=== PATIENT | female | born 1980 | race African-American/Black ===

== ENCOUNTER 2020-06-01 18:49 | Emergency (ER) | payer OTHER ==
[2020-06-01 18:55] VITALS: BMI 30.4
[2020-06-01] MEDS ORDERED: SODIUM CHLORIDE 0.9% 500 ML INFUS.BAG IV ONE (19:25)
[2020-06-01] MEDS ORDERED: ONDANSETRON 4 MG/2 ML VIAL IVPUSH ONE (19:26)
[2020-06-01] MEDS ORDERED: ONDANSETRON 4 MG/2 ML VIAL ONE (19:53)
[2020-06-01 20:01] LABS: PH,URINE 6.5 (5.0-8.0); URINE APPEARANCE CLEAR; URINE BILIRUBIN NEGATIVE (NEGATIVE); URINE COLOR YELLOW; URINE GLUCOSE (UA) NEGATIVE (NEGATIVE); URINE KETONE NEGATIVE (NEGATIVE); URINE LEUK ESTERASE NEGATIVE (NEGATIVE); URINE NITRITE NEGATIVE (NEGATIVE); URINE PROTEIN NEGATIVE (NEGATIVE); URINE UROBILINOGEN 0.2 mg/dL (0.2-1.0)
[2020-06-01 20:02] LABS: BASO % 0.8 % (0-2.0); EOS % 0.6 % (0-4.5); HEMATOCRIT 27.8 % (32.4-45.2); HEMOGLOBIN 8.7 GM/dL (10.7-15.3); LYMPH % 30.7 % (8-40); MCHC 31.4 g/dl (32.0-36.0); MEAN CELL VOLUME 59.3 fl (80-96); MEAN PLT VOLUME 10.1 fl (7.5-11.1); MONO % 7.1 % (3.8-10.2); NEUT % 60.8 % (42.8-82.8); PLATELET COUNT 191 K/MM3 (134-434); RBC 4.68 M/mm3 (3.60-5.2); RDW 23.7 % (11.6-15.6); WHITE BLOOD COUNT 5.5 K/mm3 (4.0-10.0)
[2020-06-01 20:04] LABS: HCG,QUALITATIVE URINE Negative
[2020-06-01 20:13] LABS: MCH 18.7 pg (25.7-33.7)
[2020-06-01 20:19] LABS: POTASSIUM 3.9 mmol/L (3.5-5.1)
[2020-06-01 20:20] LABS: ALBUMIN 4.1 g/dl (3.4-5.0); CALCIUM 8.6 mg/dL (8.5-10.1)
[2020-06-01 20:22] LABS: BLOOD UREA NITROGEN 6.5 mg/dL (7-18)
[2020-06-01 20:25] LABS: CREATININE 0.9 mg/dL (0.55-1.3)
[2020-06-01 20:26] LABS: BILIRUBIN,TOTAL 0.4 mg/dL (0.2-1); TOT PROT 7.8 g/dl (6.4-8.2)
[2020-06-01] MEDS ORDERED: ACETAMINOPHEN 500 MG TABLET (FP) PO ONE (20:58)
[2020-06-01 21:01] LABS: ANISOCYTOSIS 3+; MACROCYTOSIS 0; OVALOCYTE 1+; PLATELET ESTIMATE NORMAL; TARGET CELLS 2+; TEAR DROP CELLS 1+
[2020-06-01] MEDS ORDERED: ACETAMINOPHEN 500 MG TABLET (FP) ONE (21:08)
[2020-06-01] MEDS ORDERED: morphine CARPU-JECT 4 MG/1 ML DISP.SYRIN IVPUSH ONE (22:07)
[2020-06-01] MEDS ORDERED: morphine SULFATE 4 MG/ML VIAL ONE (22:12)
[2020-06-01] MEDS ORDERED: KETOROLAC TROMETHAMINE 30 MG/1 ML VIAL IVPUSH ONE (23:18)
[2020-06-01] MEDS ORDERED: KETOROLAC TROMETHAMINE 30 MG/1 ML VIAL ONE (23:23)
[2020-06-02 00:38] VITALS: BP 129/87; PULSE 89; TEMP 98.3
== END 2020-06-02 00:38 | disposition home or self-care (01) ==
LOC: JER 18:49
PROC: 3E0333Z Introduction of Anti-inflammatory into Peripheral Vein, Percutaneous Approach (ICD-10-PCS; principal; 2020-06-01)
PROC: 3E033NZ Introduction of Analgesics, Hypnotics, Sedatives into Peripheral Vein, Percutaneous Approach (ICD-10-PCS; 2020-06-01)
PROC: 3E033GC Introduction of Other Therapeutic Substance into Peripheral Vein, Percutaneous Approach (ICD-10-PCS; 2020-06-01)
DX: R10.32 Left lower quadrant pain (principal)
CPT/HCPCS: 36415; 74176-TC; 76830-TC; 80053; 81003; 84703; 85025; 87086; 99285-25

== ENCOUNTER 2021-04-24 23:55 | Emergency (ER) | payer OTHER ==
[2021-04-25 00:10] VITALS: BP 122/60; PULSE 100; TEMP 99.9; BMI 30.4
[2021-04-25] MEDS ORDERED: LIDOCAINE HCL 1%, 10 MG/ML (50 mL VIAL) SQ ONE (01:32)
[2021-04-25] MEDS ORDERED: ACETAMINOPHEN 500 MG TABLET (FP) PO ONE (01:33)
[2021-04-25] MEDS ORDERED: ACETAMINOPHEN 325 MG TABLET (FP) ONE (01:59)
[2021-04-25] MEDS ORDERED: LIDOCAINE HCL 1%, 10 MG/ML (20ML VIAL) ONE (02:01)
== END 2021-04-25 03:43 | disposition home or self-care (01) ==
LOC: JER 23:55
PROC: 0H98XZZ Drainage of Buttock Skin, External Approach (ICD-10-PCS; principal; 2021-04-24)
DX: L05.01 Pilonidal cyst with abscess (principal)
CPT/HCPCS: 87070; 87076; 87205; 99283-25

== ENCOUNTER 2021-04-26 12:19 | Emergency (ER) | payer OTHER ==
[2021-04-26 12:34] VITALS: BP 136/82; PULSE 103; TEMP 98.9; BMI 31.3
[2021-04-26] MEDS ORDERED: KETOROLAC TROMETHAMINE 30 MG/1 ML VIAL IM ONE (13:16)
[2021-04-26] MEDS ORDERED: KETOROLAC TROMETHAMINE 30 MG/1 ML VIAL ONE (13:17)
== END 2021-04-26 13:56 | disposition home or self-care (01) ==
LOC: JERFT 12:19
PROC: 3E0233Z Introduction of Anti-inflammatory into Muscle, Percutaneous Approach (ICD-10-PCS; principal; 2021-04-26)
DX: Z48.00 Encounter for change or removal of nonsurgical wound dressing (principal)
CPT/HCPCS: 99284-25

== ENCOUNTER 2021-07-28 10:25 | Observation (INO) | payer OTHER ==
[2021-07-28 10:34] VITALS: BMI 31.3
[2021-07-28 12:00] LABS: HEMATOCRIT 23.2 % (32.4-45.2); MCHC 28.6 g/dl (32.0-36.0); MEAN CELL VOLUME 50.4 fl (80-96); PLATELET COUNT 289 10^3/uL (134-434); RDW 21.1 % (11.6-15.6); WHITE BLOOD COUNT 4.5 K/mm3 (4.0-10.0)
[2021-07-28 12:02] LABS: MCH 14.4 pg (25.7-33.7)
[2021-07-28 12:06] LABS: HEMOGLOBIN 6.6 GM/dL (10.7-15.3)
[2021-07-28 12:23] LABS: BLOOD UREA NITROGEN 11.8 mg/dL (7-18); CALCIUM 8.9 mg/dL (8.5-10.1)
[2021-07-28 12:27] LABS: ANISOCYTOSIS 3+; CREATININE 0.9 mg/dL (0.55-1.3); MACROCYTOSIS 0; TARGET CELLS 1+
[2021-07-28 12:28] LABS: BILIRUBIN,TOTAL 0.7 mg/dL (0.2-1); TOT PROT 7.8 g/dl (6.4-8.2)
[2021-07-28] MEDS ORDERED: ACETAMINOPHEN 325 MG TABLET (FP) PO ONE (14:36)
[2021-07-28] MEDS ORDERED: ACETAMINOPHEN 325 MG TABLET (FP) ONE (14:45)
[2021-07-29] MEDS ORDERED: FERROUS SO4 325 MG TABLET (FP) PO SCH (10:00)
[2021-07-29 12:27] LABS: HEMATOCRIT 26.7 % (32.4-45.2); HEMOGLOBIN 7.7 GM/dL (10.7-15.3); MEAN PLT VOLUME 8.6 fl (7.5-11.1); PLATELET COUNT 291 10^3/uL (134-434); RBC 5.03 M/mm3 (3.60-5.2); RDW 21.2 % (11.6-15.6); WHITE BLOOD COUNT 6.6 K/mm3 (4.0-10.0)
[2021-07-29 12:49] LABS: CALCIUM 9.4 mg/dL (8.5-10.1)
[2021-07-29 12:50] LABS: ALBUMIN 4.1 g/dl (3.4-5.0); MAGNESIUM 2.3 mg/dL (1.8-2.4)
[2021-07-29 12:53] LABS: CREATININE 0.8 mg/dL (0.55-1.3)
[2021-07-29 12:54] LABS: BILIRUBIN,TOTAL 1.1 mg/dL (0.2-1); TOT PROT 7.8 g/dl (6.4-8.2)
[2021-07-29 12:56] LABS: MCH 15.4 pg (25.7-33.7)
[2021-07-29 13:15] LABS: ANISOCYTOSIS 3+; MACROCYTOSIS 0
[2021-07-29 14:12] VITALS: PULSE 79
[2021-07-29 18:58] VITALS: BP 106/73; TEMP 98
== END 2021-07-29 21:00 | disposition home or self-care (01) ==
LOC: JER 10:25 → JERBED 12:07 → J6S 20:08
PROVIDERS: ADMIT Internal Medicine; ATTEND Nurse Practitioner Family
PROC: 30233N1 Transfusion of Nonautologous Red Blood Cells into Peripheral Vein, Percutaneous Approach (ICD-10-PCS; principal; 2021-07-28)
DX: D62 Acute posthemorrhagic anemia (principal); D57.3 Sickle-cell trait; J45.909 Unspecified asthma, uncomplicated
CPT/HCPCS: 36415; 36430; 80053; 83735; 85025; 86850; 86900; 86901; 86922; 99285-25; C9803-CS; G0378; P9058; U0003; U0005

== ENCOUNTER 2021-07-31 01:31 | Emergency (ER) | payer OTHER ==
[2021-07-31 01:58] VITALS: TEMP 98.5; BMI 31.3
[2021-07-31] MEDS ORDERED: SODIUM CHLORIDE 0.9% 500 ML INFUS.BAG IV ONE (04:25)
[2021-07-31] MEDS ORDERED: KETOROLAC TROMETHAMINE 15 MG/ML VIAL IVPUSH ONE ×2 (04:25→07:47)
[2021-07-31] MEDS ORDERED: KETOROLAC TROMETHAMINE 15 MG/ML VIAL ONE ×2 (04:44→08:10)
[2021-07-31 04:59] LABS: HEMATOCRIT 26.6 % (32.4-45.2); HEMOGLOBIN 8.2 GM/dL (10.7-15.3); MCHC 30.6 g/dl (32.0-36.0); MEAN CELL VOLUME 55.9 fl (80-96); MEAN PLT VOLUME 8.6 fl (7.5-11.1); PLATELET COUNT 236 10^3/uL (134-434); RBC 4.76 M/mm3 (3.60-5.2); RDW 21.3 % (11.6-15.6); WHITE BLOOD COUNT 7.5 K/mm3 (4.0-10.0)
[2021-07-31 05:00] LABS: MCH 17.1 pg (25.7-33.7)
[2021-07-31 05:06] LABS: CALCIUM 8.4 mg/dL (8.5-10.1)
[2021-07-31 05:07] LABS: ALBUMIN 3.8 g/dl (3.4-5.0); BLOOD UREA NITROGEN 9.5 mg/dL (7-18)
[2021-07-31 05:10] LABS: CREATININE 0.8 mg/dL (0.55-1.3)
[2021-07-31 05:11] LABS: TOT PROT 7.7 g/dl (6.4-8.2)
[2021-07-31 05:12] LABS: BILIRUBIN,TOTAL 0.8 mg/dL (0.2-1)
[2021-07-31] MEDS ORDERED: ONDANSETRON 4 MG/2 ML VIAL IVPUSH ONE (05:38)
[2021-07-31] MEDS ORDERED: ACETAMINOPHEN 1000 MG/100 ML BAG IVPB ONE (05:38)
[2021-07-31] MEDS ORDERED: ACETAMINOPHEN INJECTION 100 ML IVPB ONE (05:43)
[2021-07-31] MEDS ORDERED: ONDANSETRON 4 MG/2 ML VIAL ONE (05:43)
[2021-07-31] MEDS ORDERED: morphine CARPU-JECT 4 MG/1 ML DISP.SYRIN IVPUSH ONE (05:52)
[2021-07-31] MEDS ORDERED: morphine SULFATE 4 MG/ML VIAL ONE (05:53)
[2021-07-31 06:52] LABS: ANISOCYTOSIS 2+; HELMET CELLS 1+; MACROCYTOSIS 1+; TARGET CELLS 1+; TEAR DROP CELLS 1+
[2021-07-31 07:15] LABS: PH,URINE >= 9.0 (5.0-8.0); URINE APPEARANCE CLEAR; URINE BILIRUBIN NEGATIVE (NEGATIVE); URINE COLOR YELLOW; URINE GLUCOSE (UA) NEGATIVE (NEGATIVE); URINE KETONE NEGATIVE (NEGATIVE); URINE LEUK ESTERASE NEGATIVE (NEGATIVE); URINE NITRITE NEGATIVE (NEGATIVE); URINE PROTEIN NEGATIVE (NEGATIVE)
[2021-07-31 10:43] VITALS: BP 104/52; PULSE 75
== END 2021-07-31 10:44 | disposition home or self-care (01) ==
LOC: JER 01:31
PROC: 3E033GC Introduction of Other Therapeutic Substance into Peripheral Vein, Percutaneous Approach (ICD-10-PCS; principal; 2021-07-31)
DX: N83.292 Other ovarian cyst, left side (principal)
CPT/HCPCS: 36415; 74177-TC; 76830-TC; 80053; 81003; 84703; 85025; 87086; 99285-25; Q9967